=== PATIENT | male | born 1965 | race Caucasian/White ===

== ENCOUNTER 2016-12-03 21:12 | Inpatient (IN) ==
[2016-12-03] MEDS ORDERED: MORPHINE 2 MG/1 ML SYRINGE IV STA (21:32)
[2016-12-03] MEDS ORDERED: ONDANSETRON 4 MG/2 ML VIAL IV STA (21:32)
[2016-12-03] MEDS ORDERED: SODIUM CHLORIDE 0.9% 1,000 ML IV STA (21:32)
--- NOTE | 2016-12-03 21:52 | Emergency Department Note ---
Germain Barker Emily, am scribing for, and in the presence of, José Aggarwal MD 21: 41. Jasen Barker Robert M, MD, personally performed the services described in this documentation, ascribed by Mae Groves in my presence, and it is both accurate and complete . Arrival - Arrival Chief Complaint: Abdominal / Flank Pain Stated Complaint: abd pain ED Nursing Triage Note: patient to triage with c/o RLQ and LLQ ABD pain that started yesterday evening. patient seen at [facility] last night and dx with constipation. last BM was 2 days ago. patient has taken fleet enema and drank a "bottle of mag" and has haf no results. patient has hx of rectal CA but is in remission at this time. Mode of Arrival: Wheelchair Limitations: No Limitations Source: Patient - History of Present Illness HPI Narrative: Pt is a 51 y/o male who came to ED with c/o diffuse abdomen pain that started yesterday evening. Pt has associated sxs of cold sweats, not able to walk, but denies vomiting. Pt reports the car ride today to ED was painful and he will buckle over into the position to help control the severity of abdomen pain. Pt was seen last night at [facility] for same sxs and was dx with constipation from x-ray only. Pt has taken fleet enema and drank a "bottle of mag" and has no results or relief. Pt reports morphine was given last night from [facility] and after worn off, his pain came back immediately. PMHx of rectal CA last year but is in remission at this time. Pt's last BM was 2 days ago. No other complaint/pain in ED. Onset (ago): day(s) Consistency: constant Severity: moderate Severity scale (1-10): 7 Quality: aching Allergies/Adverse Reactions: Allergies Allergy/AdvReac Type Severity Reaction Status Date / Time No Known Allergies Allergy Verified 12/03/16 21:23 Home Medications: Home Medications Medication Instructions Recorded Confirmed Type No Known Home Medications [No 12/03/16 12/03/16 History Known Home Medications] Review of System - Review of System 12 point system: reviewed and no additional remarkable complaints except as stated - Review of System Constitutional: Present: diaphoresis (intermittent cold sweats). Absent: fever Respiratory: Absent: respiratory distress Cardiovascular: Absent: syncope Gastrointestinal: Present: abdominal pain (severe), constipation (last BM was 2 days ago), other ( position to control pain). Absent: vomiting Musculoskeletal: Absent: arm pain, back pain, leg pain, neck pain Skin: Absent: rash Neurological: Present: abnormal gait. Absent: headache Medical,Surgical,& Family Hx - Medical History Neurology: No history of: Seizures HEENT: History of: HEENT Problems (Sinus Surgery 1980) No history of: Ear Problem, Eye Problem, Dental Problems Endocrine: History of: Dyslipidemia Respiratory: No history of: Respiratory Problems (No Flu Vac) Gastrointestinal: History of: Gastrointestinal Cancer (Rectal CA-Being Referred; Requesting Dr. Ott) Comment Only: GI Problems (EXAMINATION OF RECTUM UNDER ANESTHESIA) Musculoskeletal: History of: Musculoskeletal Problems (Lt Foot Fx Years ago; Arthritis) Hematology: No history of: Blood Transfusion Reaction (No Transfusions) Other: History of: Cancer (Rectal Ca) No history of: Anesthesia Reactions - Surgical History HEENT Surgeries: Surgical HX of: Tonsilectomy & Adenoidectomy Patient denies: Eye Surgery Abdominal Surgeries: Surgical HX of: Abdominal Surgery (EXP LAP; 12/08/15 Sched for Robotic Assisted Transanal Resection), Colonoscopy Orthopedic Surgeries: Surgical HX of;: Spinal Surgery (Fx Back 1982) - Social History Smoking Status: Current every day smoker Frequency of Alcohol Use: None Type of Drug Use: None Exam Vital Signs: Vital Signs Temperature 98.2 F 12/03/16 21:17 Pulse Rate 111 H 12/03/16 21:17 Respiratory Rate 18 12/03/16 21:17 Blood Pressure 114/77 12/03/16 21:17 O2 Sat by Pulse Oximetry 99 12/03/16 21:17 - General General appearance: alert, in no apparent distress - Head Head exam: Present: atraumatic, normocephalic - Eye Eye exam: Present: PERRL, EOMI - ENT ENT exam: Present: mucous membranes moist. Absent: mucous membranes dry - Neck Neck exam: Present: full ROM. Absent: tenderness - Chest Chest inspection: Present: symmetric chest wall rise. Absent: tenderness - Respiratory Respiratory exam: Present: normal lung sounds bilaterally. Absent: respiratory distress - Cardiovascular Cardiovascular exam: Present: tachycardia, normal heart sounds - Abdominal Exam Abdominal exam: Present: soft, tenderness (diffuse), guarding, rebound, diminished bowel sounds, other (lays with legs drawn up) - Extremities Exam Extremities exam: Present: full ROM. Absent: tenderness, pedal edema - Neurological Exam Neurological exam: Present: alert, oriented X3, CN II-XII intact. Absent: motor sensory deficit - Psychiatric Psychiatric exam: Present: normal affect, normal mood - Skin Skin exam: Present: warm, dry Course - Reevaluation(s) Reevaluation #1: The patient is continuing to hurt. I am going to give him more medications. Time: 23:04 - Consultations Consultation #1: Dr. Nair will admit the patient. He request to hydrate and try to manage the patient's pain. He understands that Vrad read the study as ruptured/ microperforation. Time: 23:05 Results - Labs CBC & BMP: 12/03/16 21:55 12/03/16 21:55 Lab Results: I have reviewed the patients labs - Diagnostic Findings Procedure: CT Abdomen and Pelvis: image reviewed by me (Ruptured appendicitis with ileus) Disposition Clinical Impression: Acute appendicitis Case discussed with: patient, patient's family Disposition: Still a Patient Condition: Stable Time of Disposition: 23:03
[2016-12-03] MEDS ORDERED: ONDANSETRON 4 MG/2 ML VIAL ONE (22:11)
[2016-12-03] MEDS ORDERED: MORPHINE 2 MG/1 ML SYRINGE ONE (22:12)
[2016-12-03 22:19] LABS: Basophils % 0.2 % (0.0-0.8); Eosinophils % 0.3 % (0.00-10.9); Hematocrit 46.1 VOL% (42.0-52.0); Hemoglobin 15.5 GM/DL (14.0-18.0); Immature Granulocytes % 0.3 %; Immature Granulocytes Absolute 0.05 #; Lymphocytes # 0.5 10*3/uL (1.4-4.0); Lymphocytes % 3.2 % (21.2-54.2); Mean Corpuscular HGB Conc 33.6 GM/DL (32-36); Mean Corpuscular Hemoglobin 30 PG (27-34); Mean Corpuscular Volume 90.2 FL (87-102); Mean Platelet Volume 9.1 FL (9.6-12.0); Monocytes # 0.6 10*3/uL (0.11-0.8); Monocytes % 4.2 % (1.7-12.7); Neutrophils # 13.9 10*3/uL (1.4-7.4); Neutrophils % 91.8 % (38.7-73.9); Platelet Count 296 T/CUMM (130-400); Red Blood Count 5.11 MC/CUMM (3.8-5.5); Red Cell Distribution Width 13.1 % (9.3-17.3); White Blood Count 15.2 T/CUMM (4-12)
[2016-12-03] MEDS ORDERED: HYDROmorphone 2 MG/1 ML VIAL ONE (22:27)
[2016-12-03] MEDS ORDERED: HYDROmorphone 2 MG/1 ML VIAL IV STA ×2 (22:30→23:21)
[2016-12-03 22:39] LABS: Lactic Acid 2.2 MMOL/L (0.4-2.0)
[2016-12-03 22:40] LABS: Alanine Aminotransferase 19 U/L (16-61); Albumin 3.6 G/DL (3.4-5.0); Alkaline Phosphatase 97 U/L (45-117); Amylase 39 U/L (25-115); Aspartate Amino Transferase 12 U/L (0-37); Blood Urea Nitrogen 28 MG/DL (7-18); Calcium 9.1 MG/DL (8.5-10.1); Glucose 114 MG/DL (74-106); Magnesium 2.6 MG/DL (1.8-2.4); Osmolality,Calculated 285.4 MOS/KG (273-304); Potassium 4.1 MMOL/L (3.5-5.1); Sodium 140 MMOL/L (136-145); Total Protein 6.7 G/DL (6.4-8.3); Troponin I Only < 0.015 NG/ML (0.00-0.045)
[2016-12-03 22:41] LABS: Band Neutrophils 3 % (0-10); Lymphocytes 4 % (20-55); Segmented Neutrophils 91 % (50-85); Total Cells Counted 100
--- NOTE | 2016-12-03 22:41 | EKG Report ---
Stationary ECG Study [facility] ER Test Date: 12/03/2016 10:40:39 PM Pat Name: BERNARDA SHEPARD Department: Room: 336 Gender: M [employer]: : 1965 Requested by: José Aggarwal Order Number: [id number] Jaylyn MD: HARISH JENNINGS Intervals [place] Rate: 109 P: 79 ME: 148 QRS: 92 QRSD: 88 T: 52 QT: 311 QTc: 375 Interpretive Statements SINUS TACHYCARDIA Electronically Signed On 12-04-16 17:24:09 CDT by HARISH JENNINGS [email or web address]
[2016-12-03 22:42] LABS: Acanthocytes Few; Platelet Estimate Adequate; Polychromasia Slight
[2016-12-03 22:43] LABS: Anisocytosis Slight
[2016-12-03] MEDS ORDERED: BISACODYL 5 MG TABLET PO PRN (23:06)
[2016-12-03] MEDS ORDERED: MORPHINE 2 MG/1 ML SYRINGE IV PRN (23:06)
[2016-12-03] MEDS ORDERED: ACETAMINOPHEN 325 MG TABLET PO PRN (23:06)
[2016-12-03] MEDS ORDERED: BISACODYL 10 MG SUPP RECTAL PRN (23:06)
[2016-12-03 23:54] LABS: Apearance,Urine CLEAR (Clear); Bilirubin,Urine Negative (Negative); Blood, Urine Negative (Negative); Glucose,Urine (UA) Negative (Negative); Hyaline Casts,Urine 9 /LPF (0-3); Ketones,Urine Negative (Negative); Mucus,Urine Moderate /LPF (Occasional); Nitrite,Urine Negative (Negative); Protein,Urine 30 MG/DL; RBC,Urine 3 /HPF (0-4); Squamous Epithelial Cell,Urine Occasional /HPF (0-10); Urine Color Yellow (Yellow); Urine Specific Gravity > 1.060 (1.001-1.035); Urine Urobilinogen < 2.0 EU/DL (0.2-1.0)
[2016-12-04] MEDS: DEXTROSE 5% LACTATED RINGERS 1,000 ML IV SCH ×3 (00:25→16:56)
[2016-12-04] MEDS: ONDANSETRON 4 MG/2 ML VIAL IV PRN ×2 (00:44→20:16)
[2016-12-04] MEDS: HYDROmorphone 2 MG/1 ML VIAL IV PRN ×3 (04:12→20:16)
--- NOTE | 2016-12-04 07:28 | CT Report ---
CT of the abdomen and pelvis with intravenous contrast. No oral contrast was administered. Axial images were obtained of the venous and delayed phases, with sagittal and coronal 2-D reconstructions of the venous phase. Indication: History of rectal carcinoid. Generalized abdominal pain. 100 cc Omnipaque 350. There is a preliminary report from [facility]. Comparison is made to a previous exam of November 10, 2015. The heart is normal in size. Hypoaeration changes are noted in the dependent aspects of the lung. There is a 2 mm pulmonary nodule in the right middle lobe, nonspecific. It is only seen in the axial cuts. There is no pericardial or pleural effusion. There is a small hiatal hernia. There is scattered plaque present within a normal caliber abdominal aorta, extending into both common iliac arteries. It also extends into the origins of the left renal artery and the SMA. No free air is identified within the peritoneal cavity. The liver is normal in size and density without focal lesion or intrahepatic biliary ductal dilatation. The gallbladder is distended, without inflammatory change noted. No pancreatic enlargement is seen. The spleen size is normal. No focal splenic lesions are identified. There is no adrenal enlargement. The kidneys are normal in size, location, and contour, without hydronephrosis or focal lesion identified. The gastric contour is normal. The size of the stomach is normal. There is no gastric wall thickening. There is fluid and food material within the stomach. The loops of small intestine are mildly distended and considerably fluid-filled. Questionable fold thickening seen in the mid to distal small intestine. The terminal ileum presents a normal appearance. The appendix is dilated and demonstrates mild uniform wall thickening. It is fluid-filled as well. There are small subcentimeter lymph nodes in the right lower quadrant mesentery. There is a small amount of free fluid noted within the pelvis. The colon contains fluid and fecal material. There is mild distention of the colon. No colonic wall thickening. No definite rectal wall thickening. There is no inguinal or iliac chain lymphadenopathy. There is a chronic compression fracture of L1. Degenerative changes are noted within the spinal column particularly at L5-S1. There is also scoliosis. Since the previous exam, there has been some loss of subcutaneous and intra-abdominal fat. Impression: 1. The appendix is dilated and fluid-filled with mild wall thickening seen. These findings raise concern for appendicitis. 2. Distended fluid-filled bowel, with slight wall thickening of the middle loops of small intestine, which could be due to ileus or enteritis. 3. Interval weight loss. 4. No evidence of metastatic disease to the liver. 5. Small nonspecific 2 mm pulmonary nodule in the right middle lobe. The CT exam was performed using one or more of the following dose reduction techniques: Automated exposure control, adjustment of the mA and/or kV according to patient size, or use of iterative reconstruction technique. PROCEDURE INTERPRETED AT [facility] DEPARTMENT OF RADIOLOGY Final Report Signed by: Dr. Kari Antunez
[2016-12-04] MEDS: PANTOPRAZOLE 40 MG TABLET PO SCH (08:04)
--- NOTE | 2016-12-04 08:18 | General Surg History&Physical ---
Assessment and Plan (1) Acute appendicitis Status: Acute Assessment and plan: Impression: Acute appendicitis Plan: Discussed options with the patient and he would like to proceed with appendectomy. Risk of the procedure including bleeding, infection, damage to surrounding structures, need for further surgery, conversion to an open procedure were all discussed in detail and he would like to proceed. Current Visit: Yes History of Present Illness Chief complaint: abdominal pain History of present illness: Mr. Garrett is a 51 year old male with a 2 day history of abdominal pain. Pain was initially generalized throughout the abdomen and has since migrated to the right lower quadrant. He denies fever. He's had nausea. No previous abdominal surgery. He's had a transrectal excision of a carcinoid in the past. Home Medications Medication Instructions Recorded Confirmed Type No Known Home Medications [No 12/03/16 12/03/16 History Known Home Medications] Allergies Allergy/AdvReac Type Severity Reaction Status Date / Time No Known Allergies Allergy Verified 12/03/16 21:23 Medical,Surgical,& Family Hx - Medical History Neurology: No history of: Seizures HEENT: History of: HEENT Problems (Sinus Surgery 1980) No history of: Ear Problem, Eye Problem, Dental Problems Endocrine: History of: Dyslipidemia Respiratory: No history of: Respiratory Problems (No Flu Vac) Gastrointestinal: History of: Gastrointestinal Cancer (Rectal CA-Being Referred; Requesting Dr. Ott) Comment Only: GI Problems (EXAMINATION OF RECTUM UNDER ANESTHESIA) Musculoskeletal: History of: Musculoskeletal Problems (Lt Foot Fx Years ago; Arthritis) Hematology: No history of: Blood Transfusion Reaction (No Transfusions) Other: History of: Cancer (Rectal Ca) No history of: Anesthesia Reactions - Surgical History HEENT Surgeries: Surgical HX of: Tonsilectomy & Adenoidectomy Patient denies: Eye Surgery Abdominal Surgeries: Surgical HX of: Abdominal Surgery (EXP LAP; 12/08/15 Sched for Robotic Assisted Transanal Resection), Colonoscopy Orthopedic Surgeries: Surgical HX of;: Spinal Surgery (Fx Back 1982) - Social History Smoking Status: Current every day smoker Frequency of Alcohol Use: None Type of Drug Use: None Exam - Constitutional Vitals: Period Temp Pulse Resp BP Sys/Lainez Pulse Ox Last 24 Hr 99.3 F-99.9 F 107-118 20-20 131-145/71-84 96-97 General appearance: no acute distress - Head Head exam: Present: normocephalic - ENT Mouth exam: Present: normal external inspection - Neck Neck exam: Present: normal inspection - Respiratory Respiratory exam: Present: clear to auscultation bilaterally - Cardiovascular Cardiovascular exam: Present: RRR - GI/Abdominal GI/Abdominal exam: Present: soft (very tender to palpation in the right lower quadrant with localized rebound. Positive Rovsing sign. Nondistended.) - Extremities Exam Extremities exam: Present: normal inspection - Neurological Exam Neurological exam: Present: alert, oriented X3 - Skin Skin exam: Present: normal color 12 point system: reviewed and no additional remarkable complaints except as stated Results - Labs CBC & BMP: 12/03/16 21:55 12/03/16 21:55 Lab Results: I have reviewed the past 24 hour labs - Diagnostic Findings Procedure: CT Abdomen and Pelvis: image reviewed by me, report reviewed by me
[2016-12-04] MEDS ORDERED: LORazepam 1 MG TABLET PO ONE (08:36)
[2016-12-04] MEDS ORDERED: FAMOTIDINE 20 MG TABLET PO ONE (08:36)
[2016-12-04] MEDS ORDERED: ACETAMINOPHEN 500 MG TABLET PO ONE (08:37)
[2016-12-04] MEDS ORDERED: BUPIVACAINE MPF 0.25% /EPI 30 ML VIAL ONE (09:25)
[2016-12-04] MEDS: GABAPENTIN 400 MG CAPSULE PO SCH (09:31)
[2016-12-04] MEDS ORDERED: DEXAMETHASONE 10 MG/1 ML VIAL ONE (09:50)
[2016-12-04] MEDS ORDERED: ROCURONIUM 100 MG/10 ML VIAL IV ONE (09:50)
[2016-12-04] MEDS ORDERED: LIDOCAINE 2% 5 ML VIAL ONE (09:50)
[2016-12-04] MEDS ORDERED: ONDANSETRON 4 MG/2 ML VIAL ONE (09:50)
[2016-12-04] MEDS ORDERED: NEOSTIGMINE 10 MG/10 ML VIAL ONE (09:50)
[2016-12-04] MEDS ORDERED: PROPOFOL 200 MG/20 ML VIAL IV ONE (09:50)
[2016-12-04] MEDS ORDERED: GLYCOPYRROLATE 0.4 MG/2 ML VIAL ONE (09:50)
[2016-12-04] MEDS ORDERED: PHENYLEPHRINE 1 MG/10 ML SYRINGE IV ONE (09:50)
--- NOTE | 2016-12-04 11:05 | Anesthesia ---
Anesthesia Post OP - Post Ansesthetic Evaluation Patient seen in post op: Yes Resp: within normal limits CV: within normal limits Mental: within normal limits Temp: within normal limits Ejty-Vt-Orxigxgnz: within normal limits Nausea and Vomiting: within normal limits Pain: within normal limits
[2016-12-04] MEDS ORDERED: SEVOFLURANE 1 UNIT/15 MINUTE INH ONE (11:07)
[2016-12-04] MEDS ORDERED: LACTATED RINGERS 1,000 ML IV ONE (11:08)
[2016-12-04] MEDS ORDERED: fentaNYL 100 MCG/2 ML VIAL ONE (11:08)
[2016-12-04] MEDS ORDERED: MIDAZOLAM 2 MG/2 ML VIAL ONE (11:08)
--- NOTE | 2016-12-04 11:10 | Operative Note ---
Date of procedure: 12/04/16 Pre-op diagnosis: appendicitis Post-op diagnosis: same (acute perforated appendicitis) Procedure: Procedure performed: Laparoscopic appendectomy #2 laparoscopic drainage of intra -abdominal abscess Procedure in detail: After informed consent was obtained patient was taken operating suite and laid supine on the operating table. After general anesthesia was induced a Varma catheter was placed and the abdomen was prepped and draped in usual sterile fashion. After procedural pause local anesthetic infiltrated in the skin and subcutaneous tissue just above the umbilicus. Incision was made and dissection carried down through skin and soft tissue. Fascia identified and grasped with [place]'s and elevated. Fascial incision was made and the abdominal cavity was entered bluntly. Finger sweep revealed no adhesions. Snow trocar was placed under visualization. Pneumoperitoneum achieved. The camera inserted and bowel and mesentery in the area were inspected and found be free of any violation. There was some adhesions to the anterior abdominal wall from the midline extending to the right lower quadrant. A 5 mm trocar was placed in the left lower quadrant under visualization and these adhesions were bluntly swept away from the abdominal wall. I encountered a cavity of purulence in the right lower quadrant. This was suctioned. A 5 mm suprapubic trocar was placed under visualization. Camera was moved to the left lower quadrant and the appendix was identified. The majority of the appendix appeared inflamed including mildly up to the base of the appendix. The perforation was approximately 1.5 -2 cm distal to the base of the appendix. The cecum did not appear to be involved in the inflammation. A window was created at the base of the appendix and a CAREN stapling device with a blue load was used to transect across a rim of cecum connected to the appendix. The mesoappendix was transected using CAREN stapling device with vascular loads. The appendix was placed in an Endo Catch sac and removed through the Snow trocar site. Right lower quadrant and pelvis were thoroughly irrigated and suctioned. Irrigation performed until the irrigant remained clear. Staple lines inspected and found be intact no leakage of's succus-appearing fluid or any bleeding small bowel in the pelvis appeared dilated. No other abnormalities identified. A 10 Tevin drain was then placed in the abdominal cavity and placed in the abscess cavity and brought out through the lower trocar site. It was secured in place with 3-0 nylon suture. Abdomen was desufflated. Remaining trochars removed. Fascia at the Snow trocar site closed using 0 Vicryl [id number] interrupted suture. Wounds were irrigated and suctioned. Incisions closed with polo. Sterile dressings applied. Patient was extubated and taken recovery room in stable condition. All lap and needle counts correct at the end of the case. Anesthesia: DALJIT Surgeon / Physician: Martin Cordova Estimated blood loss: other (less than 10 mL) Specimens: other (appendix) Condition: stable Disposition: PACU Results - Labs CBC & BMP: 12/03/16 21:55 12/03/16 21:55 Discharge Plan - Discharge Medications No Action No Known Home Medications [No Known Home Medications] - Follow Up or Referral - Forms/Instructions
[2016-12-05] MEDS: DEXTROSE 5% LACTATED RINGERS 1,000 ML IV SCH ×4 (01:54→23:34)
[2016-12-05] MEDS: HYDROmorphone 2 MG/1 ML VIAL IV PRN ×4 (01:55→23:34)
[2016-12-05 04:18] LABS: Basophils % 0.1 % (0.0-0.8); Eosinophils % 0.3 % (0.00-10.9); Hematocrit 33.3 VOL% (42.0-52.0); Hemoglobin 11.4 GM/DL (14.0-18.0); Immature Granulocytes % 0.9 %; Immature Granulocytes Absolute 0.13 #; Lymphocytes # 0.8 10*3/uL (1.4-4.0); Lymphocytes % 5.5 % (21.2-54.2); Mean Corpuscular HGB Conc 34.2 GM/DL (32-36); Mean Corpuscular Hemoglobin 31 PG (27-34); Mean Platelet Volume 9.8 FL (9.6-12.0); Monocytes # 0.6 10*3/uL (0.11-0.8); Monocytes % 3.9 % (1.7-12.7); Neutrophils # 12.9 10*3/uL (1.4-7.4); Neutrophils % 89.3 % (38.7-73.9); Platelet Count 238 T/CUMM (130-400); Red Blood Count 3.74 MC/CUMM (3.8-5.5); Red Cell Distribution Width 13.5 % (9.3-17.3); White Blood Count 14.5 T/CUMM (4-12)
[2016-12-05 04:41] LABS: Calcium 8.5 MG/DL (8.5-10.1); Osmolality,Calculated 280.5 MOS/KG (273-304); Potassium 4.1 MMOL/L (3.5-5.1)
[2016-12-05 05:03] LABS: Eosinophils 1 % (0-10); Lymphocytes 3 % (20-55); Segmented Neutrophils 95 % (50-85); Total Cells Counted 100
[2016-12-05 05:04] LABS: Burr Cells Slight; Platelet Estimate Adequate
[2016-12-05] MEDS: GABAPENTIN 400 MG CAPSULE PO SCH (09:22)
[2016-12-05] MEDS: PANTOPRAZOLE 40 MG TABLET PO SCH (09:22)
--- NOTE | 2016-12-05 10:36 | Event Note ---
Afebrile vital signs stable. Patient is doing well. Says he feels 100% better. He's been sitting up. He's had no nausea or vomiting. Started on clears this morning and he is doing well with that so far. On exam his abdomen is soft and appropriately tender nondistended the JAMAAL drain has serous output. We'll continue clear liquids today. Continue antibiotics. Recheck labs tomorrow. Encouraged ambulation
[2016-12-05] MEDS: ONDANSETRON 4 MG/2 ML VIAL IV PRN (19:53)
[2016-12-06 04:10] LABS: Basophils % 0.3 % (0.0-0.8); Eosinophils # 0.3 10*3/uL (0.0-0.87); Eosinophils % 2.3 % (0.00-10.9); Hematocrit 37.1 VOL% (42.0-52.0); Hemoglobin 12.1 GM/DL (14.0-18.0); Immature Granulocytes % 0.4 %; Immature Granulocytes Absolute 0.05 #; Lymphocytes % 8.8 % (21.2-54.2); Mean Corpuscular HGB Conc 32.6 GM/DL (32-36); Mean Corpuscular Hemoglobin 30 PG (27-34); Mean Corpuscular Volume 90.7 FL (87-102); Mean Platelet Volume 9.8 FL (9.6-12.0); Monocytes # 0.8 10*3/uL (0.11-0.8); Neutrophils # 9.3 10*3/uL (1.4-7.4); Neutrophils % 81.2 % (38.7-73.9); Platelet Count 286 T/CUMM (130-400); Red Blood Count 4.09 MC/CUMM (3.8-5.5); Red Cell Distribution Width 13.3 % (9.3-17.3); White Blood Count 11.5 T/CUMM (4-12)
[2016-12-06 05:03] LABS: Band Neutrophils 1 % (0-10); Eosinophils 4 % (0-10); Hypochromasia 1+; Lymphocytes 6 % (20-55); Platelet Estimate Adequate; Segmented Neutrophils 82 % (50-85); Total Cells Counted 100
[2016-12-06] MEDS: HYDROmorphone 2 MG/1 ML VIAL IV PRN ×3 (05:52→20:52)
--- NOTE | 2016-12-06 08:29 | Event Note ---
Reported fever of 100.3 last night but is afebrile and all entries in the system. His vital signs are stable. He feels good. He is tolerated clear liquids and wants more day. On exam his abdomen is soft and appropriately tender nondistended. JAMAAL drain has serous output. We'll advance his diet to regular diet. Stop IV fluids. Continue antibiotics. Maybe home tomorrow if he remains afebrile.
[2016-12-06] MEDS: GABAPENTIN 400 MG CAPSULE PO SCH (09:20)
[2016-12-06] MEDS: PANTOPRAZOLE 40 MG TABLET PO SCH (09:20)
[2016-12-06] MEDS: ONDANSETRON 4 MG/2 ML VIAL IV PRN (10:24)
--- NOTE | 2016-12-06 11:48 | Pathology Report from [facility] ---
ACCESSION # : [id number] PATIENT NAME : Bernarda Garrett ORDERING DR : Martin Cordova MD CLINICAL HX: Acute appendicitis POST-OP DX: Same SPECIMEN INFO: Appendix GROSS DESCRIPTION: Received in formalin labeled "BERNARDA GARRETT" is an appendix measuring 7.0 x 1.0 cm. The serosa is erythematous with abundant exudate seen. The lumen is patent with two fecaliths present measuring 2.0 x 0.8 cm in aggregate with a possible perforation noted measuring 0.5 cm. Loss Prevention/Safety District Manager sections are submitted in one cassette. DIAGNOSIS FOR BERNADRA GARRETT: APPENDIX, APPENDECTOMY: Acute suppurative appendicitis. Comment: No tumor seen. SERVICE DATE: 12/05/2016 REPORT DATE: 12/06/2016 PATHOLOGIST: Jamari Juarez
[2016-12-06] MEDS: PROMETHAZINE 25 MG/1 ML VIAL IM PRN (13:18)
--- NOTE | 2016-12-06 16:41 | XRay Report ---
Single view of the chest. Indication: Nasogastric tube placement. The distal tip of the nasogastric tube projects over the fundus of the stomach. COPD and basilar atelectasis are visualized. Gaseous distention of bowel. PROCEDURE INTERPRETED AT [facility] DEPARTMENT OF RADIOLOGY Final Report Signed by: Dr. Kari Antunez
[2016-12-06] MEDS: DEXT 5% NACL 0.45% KCL 20 MEQ 20 MEQ/1,000 ML BAG IV SCH (18:57)
[2016-12-06] MEDS: DEXTROSE 5% LACTATED RINGERS 1,000 ML IV SCH (19:38)
[2016-12-07] MEDS: PROMETHAZINE 25 MG/1 ML VIAL IM PRN (01:46)
[2016-12-07] MEDS: HYDROmorphone 2 MG/1 ML VIAL IV PRN ×4 (01:48→19:56)
[2016-12-07] MEDS: DEXT 5% NACL 0.45% KCL 20 MEQ 20 MEQ/1,000 ML BAG IV SCH ×3 (02:27→20:11)
--- NOTE | 2016-12-07 08:25 | XRay Report ---
XR abdomen 2V Indication: Nausea/vomiting, post surgery Comparison: None Technique: Frontal views of the abdomen in supine and upright position. Findings: Dilated loops of small bowel within the left mid and upper abdomen which measure up to 4.6 cm concerning for small bowel obstruction versus postoperative ileus. Side port of nonweighted enteric tube projects over the gastroesophageal region. Consider slight advancement. Surgical drain projects over the pelvis. Penasco project over the mid abdomen and left lower quadrant. There is no free intraperitoneal air demonstrated. Osseous structures demonstrate no acute abnormality. IMPRESSION: Dilated loops of small bowel within the left mid and upper abdomen which measure up to 4.6 cm concerning for small bowel obstruction versus postoperative ileus. Side port of nonweighted enteric tube projects over the gastroesophageal region. PROCEDURE INTERPRETED AT [facility] DEPARTMENT OF RADIOLOGY Final Report Signed by: Dr Timothy Servin
--- NOTE | 2016-12-07 08:52 | Event Note ---
MAXIMUM TEMPERATURE 100.3 yesterday morning. Afebrile since. Vital signs stable. NG tube was placed yesterday and has been 1.5 L out. He has an ileus as evidence on abdominal x-ray. JAMAAL drain with moderate cloudy serous fluid. He 's feeling much better. He's been ambulating. Working with incentive spirometry. On exam his abdomen is soft mildly distended and appropriately tender. Incisions are okay. Very few bowel sounds are appreciated. Plan: Continue NG tube for ileus. I discussed with him and may take several days for this to resolve. This is not unanticipated given the appearance of the bowel at the time of surgery. We'll recheck labs in the morning.
[2016-12-07] MEDS: ONDANSETRON 4 MG/2 ML VIAL IV PRN ×2 (09:58→19:56)
[2016-12-07] MEDS: PANTOPRAZOLE 40 MG TABLET PO SCH (11:12)
[2016-12-07] MEDS: GABAPENTIN 400 MG CAPSULE PO SCH (11:12)
[2016-12-08] MEDS: HYDROmorphone 2 MG/1 ML VIAL IV PRN ×4 (01:10→23:20)
[2016-12-08] MEDS: ONDANSETRON 4 MG/2 ML VIAL IV PRN ×3 (01:10→18:56)
[2016-12-08] MEDS: DEXT 5% NACL 0.45% KCL 20 MEQ 20 MEQ/1,000 ML BAG IV SCH ×4 (01:11→19:55)
[2016-12-08 05:26] LABS: Basophils % 0.3 % (0.0-0.8); Eosinophils # 0.1 10*3/uL (0.0-0.87); Hematocrit 38.4 VOL% (42.0-52.0); Hemoglobin 13.3 GM/DL (14.0-18.0); Immature Granulocytes % 0.3 %; Immature Granulocytes Absolute 0.02 #; Lymphocytes # 0.9 10*3/uL (1.4-4.0); Lymphocytes % 14.8 % (21.2-54.2); Mean Corpuscular HGB Conc 34.6 GM/DL (32-36); Mean Corpuscular Hemoglobin 30 PG (27-34); Mean Corpuscular Volume 85.7 FL (87-102); Mean Platelet Volume 9.2 FL (9.6-12.0); Monocytes # 1.1 10*3/uL (0.11-0.8); Monocytes % 17.7 % (1.7-12.7); Neutrophils # 3.9 10*3/uL (1.4-7.4); Neutrophils % 64.9 % (38.7-73.9); Platelet Count 375 T/CUMM (130-400); Red Blood Count 4.48 MC/CUMM (3.8-5.5); Red Cell Distribution Width 13.1 % (9.3-17.3)
[2016-12-08 05:51] LABS: Band Neutrophils 4 % (0-10); Hypochromasia Slight; Lymphocytes 23 % (20-55); Segmented Neutrophils 57 % (50-85); Total Cells Counted 100
[2016-12-08 05:52] LABS: Platelet Estimate Normal
[2016-12-08 06:08] LABS: Osmolality,Calculated 267.4 MOS/KG (273-304)
[2016-12-08] MEDS: GABAPENTIN 400 MG CAPSULE PO SCH (08:19)
[2016-12-08] MEDS: PANTOPRAZOLE 40 MG TABLET PO SCH (08:20)
--- NOTE | 2016-12-08 11:44 | Event Note ---
MAXIMUM TEMPERATURE 100.0. Vital signs stable. Patient says he is feeling much better. NG tube output is decreased but still about 350 mL in the last 24 hours. His pain is very minimal. His incisions look good and his abdomen is soft nontender and nondistended. The JAMAAL drain output is moderate and more serous and less cloudy today. We'll continue NG tube. A few bowel sounds are heard.
[2016-12-09] MEDS: ONDANSETRON 4 MG/2 ML VIAL IV PRN (02:54)
[2016-12-09] MEDS: DEXT 5% NACL 0.45% KCL 20 MEQ 20 MEQ/1,000 ML BAG IV SCH ×5 (02:58→20:56)
[2016-12-09] MEDS: HYDROmorphone 2 MG/1 ML VIAL IV PRN ×4 (04:31→20:51)
--- NOTE | 2016-12-09 07:44 | XRay Report ---
XR abdomen 2V Indication: Ileus. Abdomen 3 views: Small bowel gaseous distention with scattered air-fluid levels in left midabdomen is again shown. The NG tube has been removed since 12/07/2016. Very few colon markings are identified. JAMAAL drain in the pelvis noted and there are skin polo in the [id number]. Impression: Although history is ileus, findings more suggestive of continued small bowel obstruction. PROCEDURE INTERPRETED AT [facility] DEPARTMENT OF RADIOLOGY Final Report Signed by: Stefan Hooks M.D.
[2016-12-09] MEDS: PANTOPRAZOLE 40 MG TABLET PO SCH (09:00)
[2016-12-09] MEDS: GABAPENTIN 400 MG CAPSULE PO SCH (09:00)
--- NOTE | 2016-12-09 10:12 | Event Note ---
Patient states the NG tube came out this morning when he was going down for his abdominal x-ray. He's afebrile and his vital signs are stable. He has no nausea or vomiting presently. He reports some flatus. Said he had a very small bowel movement this morning. On exam his abdomen is soft and minimally distended if at all. He is appropriately tender and the incisions look good. JAMAAL drain with serous output. Very few bowel sounds are appreciated on auscultation. His abdominal x-ray still shows air-fluid levels mainly in the left hemiabdomen. May have a developing fluid collection on the right abdomen. He's not had any fever. He otherwise feels well. He would like to leave NG tube out today. We'll try to leave it out and see if he has any further nausea or vomiting. Will keep him nothing by mouth except for occasional ice chips. Encouraged to ambulate. He is using incentive spirometry.
[2016-12-09] MEDS ORDERED: ZALEPLON 5 MG CAPSULE PO PRN (10:37)
[2016-12-10] MEDS: DEXT 5% NACL 0.45% KCL 20 MEQ 20 MEQ/1,000 ML BAG IV SCH ×3 (02:12→18:03)
[2016-12-10] MEDS: GABAPENTIN 400 MG CAPSULE PO SCH (11:02)
[2016-12-10] MEDS: PANTOPRAZOLE 40 MG TABLET PO SCH (11:02)
--- NOTE | 2016-12-10 12:30 | Event Note ---
Afebrile vital signs stable. Patient says he feels great. He had a very large bowel movement this morning. He is not having any abdominal pain. On exam his abdomen is soft and appropriately tender nondistended. Incisions look good. JAMAAL drain with minimal serous output. He has great bowel sounds. We'll start clear liquids.
[2016-12-10] MEDS: HYDROmorphone 2 MG/1 ML VIAL IV PRN (23:15)
[2016-12-11] MEDS: DEXT 5% NACL 0.45% KCL 20 MEQ 20 MEQ/1,000 ML BAG IV SCH (06:19)
--- NOTE | 2016-12-11 10:06 | Event Note ---
Afebrile vital signs are stable. He tolerated clear liquids with no nausea or vomiting. He's had a couple more bowel movements he states. His JAMAAL drain has had minimal output and is serous. Abdomen is soft nontender nondistended and incisions. Be healing well. Will DC his JAMAAL drain. Start him on a regular diet. DC his IV fluids. He may be ready to go home tomorrow.
[2016-12-11] MEDS: PANTOPRAZOLE 40 MG TABLET PO SCH (10:12)
[2016-12-11] MEDS: GABAPENTIN 400 MG CAPSULE PO SCH (10:12)
[2016-12-11] MEDS: HYDROmorphone 2 MG/1 ML VIAL IV PRN (21:12)
[2016-12-12] MEDS: GABAPENTIN 400 MG CAPSULE PO SCH (08:10)
[2016-12-12] MEDS: PANTOPRAZOLE 40 MG TABLET PO SCH (08:10)
--- NOTE | 2016-12-12 12:02 | Discharge Summary ---
Hospital Course - Hospital Course Hospital Course: See history and physical. The patient underwent arthroscopic appendectomy as well as arthroscopic drainage of associated abscess secondary to perforation with JAMAAL drain remaining. He developed a postoperative ileus by abdominal XR requiring decompression with NG tube placement. He responded well to this therapy and ultimately the NG tube was removed without complication. Patient had no residual abdominal pain and was passing flatus as well as bowel movements without difficulty on day of discharge. He received appropriate perioperative and postoperative parenteral antibiotics. Leukocytosis now resolved and no significant electrolyte imbalances were noted. He is up ambulating without difficulty, showering, and feeling well stating he is ready for discharge. is present. - Time spent with patient Time with patient DS: Less than 30 minutes Diagnosis - Discharge Diagnosis (1) Appendicitis with perforation Status: Acute Specialty Discharge - Follow Up or Referrals Follow up with: Martin Cordova MD [Physician] - 12/19/16 10:30 am (please bring medicines, insurance cards and photo id to your appointment.) Discharge Plan - Discharge Data Disposition: Disch To Home/Self Care Condition at Discharge: Stable Discharge Diet: advance to your usual diet Activity: increase activity as tolerated, other (No lifting > 20 lb. ) Hygiene: may shower Driving: other (No driving or operating heavy machinery while taking narcotics) Contact your physician if you experience:: fever over 101, Difficulty voiding, Redness or swelling, Nausea/Vomiting, Shortness of breath, Bleeding, pain uncontrolled by pain medications Wound / Dressing Care Instructions: Keep wounds clean, dry and covered. May shower but do not soak wounds. - Discharge Medications New HYDROcodone/ACETAMIN 7.5-325 [[place] 7.5-325] 1 tablet PO Q4H PRN #30 tablet PRN Reason: Pain Moderate To Severe (4-10) Ondansetron Tab [Zofran Tab] 4 mg PO Q8HR PRN #30 tablet PRN Reason: Nausea Ciprofloxacin Tab [Cipro Tab] 500 mg PO BID #14 tablet - Follow Up or Referral Follow Up: Martin Cordova MD [Physician] - 12/19/16 10:30 am (please bring medicines, insurance cards and photo id to your appointment.) - Forms/Instructions Instructions: Laparoscopic Appendectomy (DC) Exam - Constitutional Vitals: Period Temp Pulse Resp BP Sys/Lainez Pulse Ox Last 24 Hr 98.2 F-99.8 F 76-93 18-20 121-154/74-96 96-100 General appearance: no acute distress - Head Head exam: Present: normal inspection, normocephalic - Eye Eye exam: Absent: scleral icterus - Respiratory Respiratory exam: Present: clear to auscultation bilaterally - Cardiovascular Cardiovascular exam: Present: regular rate and rhythm - GI/Abdominal GI/Abdominal exam: Present: normal bowel sounds, soft, other (Dressings noted to be clean, dry and intact.). Absent: tenderness - Extremities Exam Extremities exam: Absent: edema - Neurological Exam Neurological exam: Present: alert, oriented X3, normal gait - Psychiatric Psychiatric exam: Present: normal affect, normal mood - Skin Skin exam: Present: normal color, warm. Absent: diaphoretic, pallor Discharge Results - Imaging and Cardiology Procedure: Abdominal x-ray: report reviewed by me (post-operative ileus noted), Chest x-ray: report reviewed by me (chronic changes; NGT placement confirmed appropriate; no acute findings), CT Abdomen and Pelvis: report reviewed by me ( Findings consistent with appendicitis with localized fluid collection) DS: Provider Date of admission: 12/03/16 23:06 Primary care physician: . No PCP Attending physician on admission: Martin Cordova MD Discharging clinician: Leslie Whalen PA-C Expected date of discharge: 12/12/16
[2016-12-12 12:41] VITALS: BP 118/69
== END 2016-12-12 13:55 | disposition home or self-care (01) | DRG 339 ==
LOC: N.ED 21:12 → N.EDINP 23:06 → N.3E 23:34
PROVIDERS: ADMIT Surgery; ATTEND Surgery

== ENCOUNTER 2019-06-01 18:06 | Observation (INO) ==
[2019-06-01] MEDS ORDERED: ONDANSETRON 4 MG/2 ML VIAL IV ONE (18:57)
[2019-06-01] MEDS ORDERED: MORPHINE 4 MG/1 ML VIAL IV STA ×2 (18:57→21:00)
[2019-06-01 19:00] LABS: Basophils # 0.1 10*3/uL (0.0-0.2); Basophils % 0.6 % (0.0-0.8); Eosinophils # 0.2 10*3/uL (0.0-0.87); Eosinophils % 0.9 % (0.00-10.9); Hematocrit 40.7 VOL% (42.0-52.0); Hemoglobin 13.6 GM/DL (14.0-18.0); Immature Granulocytes Absolute 0.18 #; Lymphocytes # 1.5 10*3/uL (1.4-4.0); Mean Corpuscular HGB Conc 33.4 GM/DL (32-36); Mean Corpuscular Volume 94.4 FL (87-102); Monocytes % 7.2 % (1.7-12.7); Neutrophils % 82.3 % (38.7-73.9); Platelet Count 465 T/CUMM (130-400); Red Blood Count 4.31 MC/CUMM (3.8-5.5); Red Cell Distribution Width 13.2 % (9.3-17.3); White Blood Count 18.4 T/CUMM (4-12)
[2019-06-01 19:05] LABS: INR 0.9
[2019-06-01 19:17] LABS: Alanine Aminotransferase 27 U/L (16-61); Albumin 3.6 G/DL (3.4-5.0); Alkaline Phosphatase 103 U/L (45-117); Aspartate Amino Transferase 18 U/L (0-37); Bilirubin,Total < 0.39 MG/DL (0.2-1.0); Blood Urea Nitrogen 9 MG/DL (7-18); Calcium 9.2 MG/DL (8.5-10.1); Estimated Glom Filtration Rate 81 ML/MIN; Glucose 120 MG/DL (74-106); Osmolality,Calculated 272.8 MOS/KG (273-304); Total Protein 6.9 G/DL (6.4-8.3)
[2019-06-01] MEDS ORDERED: KETOROLAC 30 MG/1 ML VIAL IV STA (20:27)
[2019-06-01] MEDS ORDERED: KETOROLAC 30 MG/1 ML VIAL ONE (20:28)
[2019-06-01 20:49] LABS: Apearance,Urine CLEAR (Clear); Bilirubin,Urine Negative (Negative); Blood, Urine Negative (Negative); Glucose,Urine (UA) Negative (Negative); Ketones,Urine 5 mg/dL (Negative); Mucus,Urine Occasional /LPF (Occasional); Nitrite,Urine Negative (Negative); Protein,Urine Negative; RBC,Urine 9 /HPF (0-4); Sperm,Urine Occasional /HPF (Negative); Squamous Epithelial Cell,Urine Occasional /HPF (0-10); Urine Color Yellow (Yellow); Urine Specific Gravity 1.044 (1.001-1.035); Urine Urobilinogen < 2.0 EU/DL (0.2-1.0); WBC,Urine 4 /HPF (0-6)
[2019-06-01 20:53] LABS: Barbiturates Screen,Urine Negative (Negative); Benzodiazepines Screen,Urine Negative (Negative); Cannabinoid Screen,Urine Negative (Negative); Opiate Screen,Urine Positive (Negative); Phencyclidine Screen,Urine Negative (Negative)
[2019-06-01] MEDS ORDERED: LABETALOL 20 MG/4 ML SYRINGE IV STA (21:00)
[2019-06-01] MEDS ORDERED: cloNIDine 0.1 MG TABLET PO STA (21:24)
[2019-06-01] MEDS ORDERED: NICOTINE 21 MG/24 HR PATCH TRANSDERM PRN (21:29)
[2019-06-01] MEDS ORDERED: PROMETHAZINE 25 MG/1 ML VIAL IM PRN (21:29)
[2019-06-01] MEDS ORDERED: guaiFENesin/DM ER 600-30 MG TABLET PO PRN (21:29)
[2019-06-01] MEDS ORDERED: diphenhydrAMINE CAP 25 MG CAPSULE PO PRN (21:29)
[2019-06-01] MEDS ORDERED: ACETAMINOPHEN 325 MG TABLET PO PRN (21:29)
[2019-06-01] MEDS ORDERED: THIAMINE INJ 100 MG, FOLIC ACID INJ 1 MG, MULTIVITAMIN INJ 10 ML in SODIUM CHLORIDE 0.9... IV ONE (22:30)
[2019-06-01] MEDS: MORPHINE 4 MG/1 ML VIAL IV PRN (23:43)
[2019-06-01] MEDS: traZODone 50 MG TABLET PO PRN (23:43)
[2019-06-01] MEDS: SODIUM CHLORIDE 0.9% 1,000 ML IV SCH (23:44)
[2019-06-02 05:35] LABS: Albumin 2.8 G/DL (3.4-5.0); Bilirubin,Total 0.9 MG/DL (0.2-1.0); Calcium 8.1 MG/DL (8.5-10.1); Osmolality,Calculated 278.4 MOS/KG (273-304); Total Protein 5.6 G/DL (6.4-8.3)
[2019-06-02] MEDS: SODIUM CHLORIDE 0.9% 1,000 ML IV SCH ×3 (05:52→19:44)
[2019-06-02] MEDS: ONDANSETRON 4 MG/2 ML VIAL IV PRN (08:34)
[2019-06-02] MEDS: PANTOPRAZOLE 40 MG TABLET PO SCH (08:34)
[2019-06-02 09:31] LABS: Basophils # 0.1 10*3/uL (0.0-0.2); Basophils % 0.6 % (0.0-0.8); Eosinophils # 0.3 10*3/uL (0.0-0.87); Eosinophils % 2.7 % (0.00-10.9); Hematocrit 40.3 VOL% (42.0-52.0); Hemoglobin 13.2 GM/DL (14.0-18.0); Immature Granulocytes % 0.5 %; Immature Granulocytes Absolute 0.05 #; Lymphocytes # 1.2 10*3/uL (1.4-4.0); Lymphocytes % 11.5 % (21.2-54.2); Mean Corpuscular HGB Conc 32.8 GM/DL (32-36); Mean Corpuscular Volume 95.7 FL (87-102); Mean Platelet Volume 9.1 FL (9.6-12.0); Monocytes % 10.1 % (1.7-12.7); Neutrophils % 74.6 % (38.7-73.9); Platelet Count 414 T/CUMM (130-400); Red Blood Count 4.21 MC/CUMM (3.8-5.5); Red Cell Distribution Width 13.4 % (9.3-17.3); White Blood Count 10.3 T/CUMM (4-12)
[2019-06-02] MEDS: ENOXAPARIN 40 MG/0.4 ML SYRINGE SUBCUT SCH (09:41)
[2019-06-02] MEDS: POTASSIUM CHLORIDE 20 MEQ TABLET PO PRN ×5 (09:42→20:35)
[2019-06-02] MEDS: LIDOCAINE 5% PATCH TRANSDERM SCH ×2 (09:42→20:35)
[2019-06-02] MEDS: BACLOFEN 10 MG TABLET PO SCH ×2 (09:42→20:35)
[2019-06-02] MEDS: MORPHINE 4 MG/1 ML VIAL IV PRN ×3 (14:19→22:56)
[2019-06-02] MEDS: traZODone 50 MG TABLET PO PRN (20:35)
[2019-06-03] MEDS: SODIUM CHLORIDE 0.9% 1,000 ML IV SCH ×3 (02:25→13:21)
[2019-06-03] MEDS: MORPHINE 4 MG/1 ML VIAL IV PRN ×3 (05:53→20:14)
[2019-06-03 05:56] LABS: Calcium 8.5 MG/DL (8.5-10.1); Osmolality,Calculated 273.5 MOS/KG (273-304)
[2019-06-03] MEDS: LIDOCAINE 5% PATCH TRANSDERM SCH ×2 (08:29→20:13)
[2019-06-03] MEDS: ENOXAPARIN 40 MG/0.4 ML SYRINGE SUBCUT SCH (08:29)
[2019-06-03] MEDS: BACLOFEN 10 MG TABLET PO SCH ×2 (08:31→20:13)
[2019-06-03] MEDS: PANTOPRAZOLE 40 MG TABLET PO SCH (08:32)
[2019-06-03] MEDS ORDERED: amLODIPine 5 MG TABLET PO ONE (15:19)
[2019-06-03] MEDS ORDERED: lisinopriL 20 MG TABLET PO ONE (15:21)
[2019-06-03] MEDS ORDERED: NAPROXEN 500 MG TABLET PO PRN (16:51)
[2019-06-03] MEDS ORDERED: hydrALAZINE 20 MG/1 ML VIAL IV PRN (17:20)
[2019-06-03] MEDS: traZODone 50 MG TABLET PO PRN (22:15)
[2019-06-04 08:32] VITALS: BP 122/76
[2019-06-04] MEDS: ONDANSETRON 4 MG/2 ML VIAL IV PRN (08:41)
[2019-06-04] MEDS: PANTOPRAZOLE 40 MG TABLET PO SCH (08:43)
[2019-06-04] MEDS: LIDOCAINE 5% PATCH TRANSDERM SCH (08:46)
[2019-06-04] MEDS: BACLOFEN 10 MG TABLET PO SCH (08:46)
[2019-06-04] MEDS: ENOXAPARIN 40 MG/0.4 ML SYRINGE SUBCUT SCH (08:57)
[2019-06-04] MEDS ORDERED: lisinopriL 20 MG TABLET PO SCH (09:00)
[2019-06-04] MEDS ORDERED: amLODIPine 5 MG TABLET PO SCH (09:00)
== END 2019-06-04 11:54 | disposition home or self-care (01) ==
LOC: EDUNIT# → EDBD → N.EDINP 18:06 → N.ED 18:06 → N.TELEN 22:06
PROVIDERS: ADMIT Internal Medicine; ATTEND Internal Medicine